=== PATIENT | male | born 1965 | race Caucasian/White ===

== ENCOUNTER 2020-02-04 12:34 | Emergency (ER) | payer MEDICAID ==
[~2020-02-04] VITALS: Ht 180.3 cm; Wt 70.0 kg
[2020-02-04 14:20] LABS: URINE BILIRUBIN - DIPSTICK NEGATIVE (NEGATIVE); URINE BLOOD DIPSTICK NEGATIVE (NEGATIVE); URINE COLOR YELLOW; URINE GLUCOSE - DIPSTICK NEGATIVE (NEGATIVE); URINE KETONE NEGATIVE (NEGATIVE); URINE LEUK ESTERASE NEGATIVE (NEGATIVE); URINE NITRITE - DIPSTICK NEGATIVE (Negative); URINE PH 7.5 (4.5-8.0); URINE PROTEIN - DIPSTICK NEGATIVE (NEG-TRACE); URINE UROBILINOGEN - DIPSTICK 0.2 E.U./dL (0.2)
[2020-02-04 15:10] VITALS: BP 152/90
[2020-02-04] MEDS ORDERED: TAMSULOSIN0.4 MG PO (15:10)
== END 2020-02-04 15:20 | disposition home or self-care (01) ==
LOC: ED 12:34
DX: R39.11 Hesitancy of micturition (principal); I10 Essential (primary) hypertension; F41.9 Anxiety disorder, unspecified; F32.9 Major depressive disorder, single episode, unspecified

== ENCOUNTER 2020-02-10 09:16 | Emergency (ER) | payer MEDICAID ==
[~2020-02-10] VITALS: Ht 180.3 cm; Wt 75.0 kg
[~2020-02-10 09:16] MED LIST: TAMSULOSIN0.4 MG PO
[2020-02-10] MEDS ORDERED: AMLODIPINE BESY10 MG PO (10:14)
[2020-02-10] MEDS ORDERED: MECLIZINE25 MG PO (10:14)
[2020-02-10] MEDS ORDERED: GABAPENTIN100 MG PO (10:14)
[2020-02-10] MEDS ORDERED: DULOXETINE HYDR60 MG PO (10:15)
[2020-02-10] MEDS ORDERED: HYDROXYZ PAM50 MG PO (10:16)
[2020-02-10] MEDS ORDERED: TRAZODONE50 MG PO (10:16)
[2020-02-10] MEDS ORDERED: NALTREXONE50 MG PO (10:17)
[2020-02-10] MEDS ORDERED: FOLIC ACID1 M1 PO (10:18)
[2020-02-10] MEDS ORDERED: BUSPIRONE30 MG PO (10:18)
[2020-02-10 10:38] LABS: HEMATOCRIT 43.3 % (39.0-50.0); HEMOGLOBIN 14.5 g/dl (14.0-18.0); IMMATURE GRANULOCYTES 0.3 % (0.0-5.0); MEAN CELL VOLUME 90.2 fL CALC (80.0-100.0); MEAN CORPUSCULAR HGB 30.2 pG CALC (26.0-32.0); MEAN CORPUSCULAR HGB CONC 33.5 g/dL CAL (32.0-36.0); NEUT# 4.86 thou/uL (1.82-7.42); RED BLOOD COUNT 4.8 mill/uL (4.70-6.10); RED CELL DISTRI WIDTH 13.5 % (11.5-15.5)
[2020-02-10 10:49] LABS: ALBUMIN 4.6 g/dL (3.2-5.0); ALKALINE PHOSPHATASE 109 u/l (38-126); ANION GAP 15 (6-22 (CALC)); BILIRUBIN, TOTAL 0.7 mg/dL (0.0-1.4); BUN 17 mg/dL (9-20); BUN/CREATININE RATIO 22 (12-20 (CALC)); CARBON DIOXIDE 25 mmol/l (22-30); CHLORIDE 105 mmol/l (95-108); CREATININE 0.7 mg/dL (0.7-1.3); GFR > 60 ML/MIN (>=60 (CALC)); GFR FOR AFR.AMER. > 60 ML/MIN (>=60 (CALC)); LIPASE 94 u/l (23-300); POTASSIUM 3.5 mmol/l (3.5-5.1); SGOT/AST 40 u/l (17-59); SODIUM 142 mmol/l (137-146)
[2020-02-10 10:55] LABS: URINE BILIRUBIN - DIPSTICK NEGATIVE (NEGATIVE); URINE BLOOD DIPSTICK NEGATIVE (NEGATIVE); URINE COLOR YELLOW; URINE GLUCOSE - DIPSTICK NEGATIVE (NEGATIVE); URINE KETONE NEGATIVE (NEGATIVE); URINE LEUK ESTERASE NEGATIVE (NEGATIVE); URINE NITRITE - DIPSTICK NEGATIVE (Negative); URINE PH 6.5 (4.5-8.0); URINE PROTEIN - DIPSTICK NEGATIVE (NEG-TRACE); URINE SPECIFIC GRAVITY 1.025; URINE UROBILINOGEN - DIPSTICK 0.2 E.U./dL (0.2)
[2020-02-10 12:15] VITALS: BP 137/76
[2020-02-10] MEDS ORDERED: LASIX20 MG PO (12:38)
== END 2020-02-10 12:57 | disposition home or self-care (01) ==
LOC: ED 09:16
PROVIDERS: Family Medicine
DX: R60.0 Localized edema (principal); I10 Essential (primary) hypertension; F32.9 Major depressive disorder, single episode, unspecified; F41.9 Anxiety disorder, unspecified; F10.10 Alcohol abuse, uncomplicated; F17.200 Nicotine dependence, unspecified, uncomplicated
CPT/HCPCS: Q9967

== ENCOUNTER 2021-03-09 15:46 | Observation (INO) | payer MEDICAID ==
[~2021-03-09] VITALS: Ht 180.3 cm; Wt 79.1 kg
[~2021-03-09 15:46] MED LIST changes: +AMLODIPINE BESY10 MG PO; +BUSPIRONE30 MG PO; +DULOXETINE HYDR60 MG PO; +FLONASE AL50 MCG/ACT; +FOLIC ACID1 M1 PO; +GABAPENTIN100 MG PO; +HYDROXYZ PAM50 MG PO; +LASIX20 MG PO; +MECLIZINE25 MG PO; +NALTREXONE50 MG PO; +TRAZODONE50 MG PO; +ZITHROMAX250 MG PO
[2021-03-09 16:35] LABS: HEMATOCRIT 46.2 % (39.0-50.0); IMMATURE GRANULOCYTES 0.1 % (0.0-5.0); MEAN CELL VOLUME 89.9 fL CALC (80.0-100.0); MEAN CORPUSCULAR HGB 31.1 pG CALC (26.0-32.0); MEAN CORPUSCULAR HGB CONC 34.6 g/dL CAL (32.0-36.0); NEUT# 5.46 thou/uL (1.82-7.42); RED BLOOD COUNT 5.14 mill/uL (4.70-6.10); RED CELL DISTRI WIDTH 11.7 % (11.5-15.5)
[2021-03-09 16:55] LABS: ALBUMIN 4.6 g/dL (3.2-5.0); ALKALINE PHOSPHATASE 128 u/l (38-126); ANION GAP 16 (6-22 (CALC)); BILIRUBIN, TOTAL 0.8 mg/dL (0.0-1.4); BUN 18 mg/dL (9-20); BUN/CREATININE RATIO 19 (12-20 (CALC)); CARBON DIOXIDE 25 mmol/l (22-30); CHLORIDE 104 mmol/l (95-108); CREATININE 0.9 mg/dL (0.7-1.3); ETHYL ALCOHOL 105 mg/dl (0-30); GFR > 60 ML/MIN (>=60 (CALC)); GFR FOR AFR.AMER. > 60 ML/MIN (>=60 (CALC)); LIPASE 88 u/l (23-300); POTASSIUM 3.8 mmol/l (3.5-5.1); SGOT/AST 30 u/l (17-59); SODIUM 141 mmol/l (137-146); TOTAL PROTEIN 8.2 g/dL (6.3-8.2)
[2021-03-09] MEDS ORDERED: TRAZODONE50 MG PO (18:42)
[2021-03-09] MEDS ORDERED: QUETIAPINE FUMA50 MG PO (18:43)
[2021-03-09] MEDS ORDERED: FOLIC ACID1 MG PO (18:43)
[2021-03-09] MEDS ORDERED: CYMBALTA60 MG PO (18:43)
[2021-03-09] MEDS ORDERED: GABAPENTIN100 MG PO (18:44)
[2021-03-09] MEDS ORDERED: NORVASC5 M1 PO (18:45)
[2021-03-09] MEDS ORDERED: B-1100 MG PO (18:46)
[2021-03-09] MEDS ORDERED: THERA M PLUS PO (18:47)
[2021-03-09] MEDS ORDERED: NALTREXONE HCL50 MG PO (18:47)
[2021-03-09 20:31] LABS: URINE BILIRUBIN - DIPSTICK NEGATIVE (NEGATIVE); URINE BLOOD DIPSTICK NEGATIVE (NEGATIVE); URINE COLOR YELLOW; URINE GLUCOSE - DIPSTICK NEGATIVE (NEGATIVE); URINE KETONE NEGATIVE (NEGATIVE); URINE LEUK ESTERASE NEGATIVE (NEGATIVE); URINE PH 5.5 (4.5-8.0); URINE PROTEIN - DIPSTICK NEGATIVE (NEG-TRACE); URINE SPECIFIC GRAVITY <=1.005; URINE UROBILINOGEN - DIPSTICK 0.2 E.U./dL (0.2)
[2021-03-09 20:35] LABS: URINE NITRITE - DIPSTICK NEGATIVE (Negative)
[2021-03-09 21:15] VITALS: BP 129/84
[2021-03-10] VITALS: BP 100/77
[2021-03-10 04:00] VITALS: BP 120/87
[2021-03-10 04:57] LABS: HEMATOCRIT 42.9 % (39.0-50.0); HEMOGLOBIN 14.8 g/dl (14.0-18.0); IMMATURE GRANULOCYTES 0.2 % (0.0-5.0); MEAN CELL VOLUME 90.3 fL CALC (80.0-100.0); MEAN CORPUSCULAR HGB 31.2 pG CALC (26.0-32.0); MEAN CORPUSCULAR HGB CONC 34.5 g/dL CAL (32.0-36.0); NEUT# 2.52 thou/uL (1.82-7.42); RED BLOOD COUNT 4.75 mill/uL (4.70-6.10); RED CELL DISTRI WIDTH 11.6 % (11.5-15.5)
[2021-03-10 05:18] LABS: ALBUMIN 3.6 g/dL (3.2-5.0); ALKALINE PHOSPHATASE 106 u/l (38-126); ANION GAP 9 (6-22 (CALC)); BUN 15 mg/dL (9-20); BUN/CREATININE RATIO 19 (12-20 (CALC)); CARBON DIOXIDE 29 mmol/l (22-30); CHLORIDE 106 mmol/l (95-108); CREATININE 0.8 mg/dL (0.7-1.3); GFR > 60 ML/MIN (>=60 (CALC)); GFR FOR AFR.AMER. > 60 ML/MIN (>=60 (CALC)); POTASSIUM 4.7 mmol/l (3.5-5.1); SGOT/AST 25 u/l (17-59); SODIUM 139 mmol/l (137-146); TOTAL PROTEIN 6.5 g/dL (6.3-8.2)
[2021-03-10 08:57] VITALS: BP 124/84
[2021-03-10 10:43] VITALS: BP 132/80
== END 2021-03-10 12:59 | disposition home or self-care (01) ==
LOC: ED 15:46 → ED-I 18:38 → ED 18:58 → MS2 18:59
PROVIDERS: Family Medicine; ADMIT Internal Medicine; ATTEND Internal Medicine
DX: F10.239 Alcohol dependence with withdrawal, unspecified (principal); U07.1 COVID-19; R10.31 Right lower quadrant pain; I10 Essential (primary) hypertension; F32.A Depression, unspecified; F41.9 Anxiety disorder, unspecified; Y90.5 Blood alcohol level of 100-119 mg/100 ml; Z23 Encounter for immunization
CPT/HCPCS: G0378; J2060; Q9967

== ENCOUNTER 2021-03-21 06:40 | Observation (INO) | payer MEDICAID ==
[~2021-03-21] VITALS: Ht 180.3 cm; Wt 80.0 kg
[~2021-03-21 06:40] MED LIST changes: +B-1100 MG PO; +CYMBALTA60 MG PO; +FOLIC ACID1 MG PO; +NALTREXONE HCL50 MG PO; +NORVASC5 M1 PO; +QUETIAPINE FUMA50 MG PO; +THERA M PLUS PO
[2021-03-21 07:39] LABS: HEMATOCRIT 43.9 % (39.0-50.0); HEMOGLOBIN 15.1 g/dl (14.0-18.0); IMMATURE GRANULOCYTES 0.3 % (0.0-5.0); MEAN CELL VOLUME 90.5 fL CALC (80.0-100.0); MEAN CORPUSCULAR HGB 31.1 pG CALC (26.0-32.0); MEAN CORPUSCULAR HGB CONC 34.4 g/dL CAL (32.0-36.0); NEUT# 4.9 thou/uL (1.82-7.42); RED BLOOD COUNT 4.85 mill/uL (4.70-6.10); RED CELL DISTRI WIDTH 12.2 % (11.5-15.5)
[2021-03-21 07:48] LABS: URINE BILIRUBIN - DIPSTICK NEGATIVE (NEGATIVE); URINE BLOOD DIPSTICK NEGATIVE (NEGATIVE); URINE COLOR YELLOW; URINE GLUCOSE - DIPSTICK NEGATIVE (NEGATIVE); URINE KETONE NEGATIVE (NEGATIVE); URINE LEUK ESTERASE NEGATIVE (NEGATIVE); URINE PROTEIN - DIPSTICK NEGATIVE (NEG-TRACE); URINE SPECIFIC GRAVITY 1.025; URINE UROBILINOGEN - DIPSTICK 0.2 E.U./dL (0.2)
[2021-03-21 07:50] LABS: URINE NITRITE - DIPSTICK NEGATIVE (Negative)
[2021-03-21 08:00] LABS: ALBUMIN 3.9 g/dL (3.2-5.0); ALKALINE PHOSPHATASE 95 u/l (38-126); AMYLASE 64 u/l (30-110); ANION GAP 8 (6-22 (CALC)); BILIRUBIN, TOTAL 0.8 mg/dL (0.0-1.4); BUN 13 mg/dL (9-20); BUN/CREATININE RATIO 17 (12-20 (CALC)); CARBON DIOXIDE 29 mmol/l (22-30); CHLORIDE 104 mmol/l (95-108); CREATININE 0.8 mg/dL (0.7-1.3); GFR > 60 ML/MIN (>=60 (CALC)); GFR FOR AFR.AMER. > 60 ML/MIN (>=60 (CALC)); LIPASE 148 u/l (23-300); POTASSIUM 4.2 mmol/l (3.5-5.1); SGOT/AST 25 u/l (17-59); SODIUM 136 mmol/l (137-146); TOTAL PROTEIN 7.1 g/dL (6.3-8.2)
[2021-03-21 08:04] LABS: MYOGLOBIN 31 ng/mL (0 - 121)
[2021-03-21 08:12] LABS: ETHYL ALCOHOL 0 mg/dl (0-30)
[2021-03-21 10:57] VITALS: BP 156/92
[2021-03-21 15:52] VITALS: BP 153/92
[2021-03-21 19:00] VITALS: BP 134/82
[2021-03-22] VITALS: BP 125/78
[2021-03-22 04:00] VITALS: BP 134/78
[2021-03-22 05:13] LABS: HEMATOCRIT 40.6 % (39.0-50.0); HEMOGLOBIN 14.1 g/dl (14.0-18.0); MEAN CORPUSCULAR HGB 31.3 pG CALC (26.0-32.0); MEAN CORPUSCULAR HGB CONC 34.7 g/dL CAL (32.0-36.0); RED BLOOD COUNT 4.51 mill/uL (4.70-6.10); RED CELL DISTRI WIDTH 12.2 % (11.5-15.5)
[2021-03-22 05:22] LABS: ANION GAP 9 (6-22 (CALC)); BUN 9 mg/dL (9-20); BUN/CREATININE RATIO 10 (12-20 (CALC)); CARBON DIOXIDE 29 mmol/l (22-30); CHLORIDE 103 mmol/l (95-108); CREATININE 0.8 mg/dL (0.7-1.3); GFR > 60 ML/MIN (>=60 (CALC)); GFR FOR AFR.AMER. > 60 ML/MIN (>=60 (CALC)); POTASSIUM 4.1 mmol/l (3.5-5.1); SODIUM 136 mmol/l (137-146)
[2021-03-22 07:00] VITALS: BP 138/72
[2021-03-22] MEDS ORDERED: ZOFRAN4 MG/TAB PO (10:13)
[2021-03-22] MEDS ORDERED: PROTONIX40 M2 PO (10:13)
[2021-03-22 10:50] VITALS: BP 136/82
== END 2021-03-22 11:00 | disposition home or self-care (01) ==
LOC: ED 06:40 → ED-I 09:00 → ED 09:20 → MS2 09:21
PROVIDERS: Hospitalist; ADMIT Internal Medicine; ATTEND Internal Medicine
DX: K29.21 Alcoholic gastritis with bleeding (principal); F10.20 Alcohol dependence, uncomplicated; K52.9 Noninfective gastroenteritis and colitis, unspecified; I10 Essential (primary) hypertension; F32.A Depression, unspecified; F41.9 Anxiety disorder, unspecified; N40.0 Benign prostatic hyperplasia without lower urinary tract symptoms; F17.200 Nicotine dependence, unspecified, uncomplicated; Z80.0 Family history of malignant neoplasm of digestive organs; Z86.16 Personal history of COVID-19; Z20.822 Contact with and (suspected) exposure to COVID-19
CPT/HCPCS: G0378; Q9967; S0164

== ENCOUNTER 2021-07-15 15:30 | Emergency (ER) | payer MEDICAID ==
[~2021-07-15] VITALS: Ht 180.3 cm; Wt 68.0 kg
[~2021-07-15 15:30] MED LIST changes: +PROTONIX40 M2 PO; +ZOFRAN4 MG/TAB PO
[2021-07-15 16:17] LABS: IMMATURE GRANULOCYTES 0.2 % (0.0-5.0); MEAN CELL VOLUME 91.8 fL CALC (80.0-100.0); MEAN CORPUSCULAR HGB 31.3 pG CALC (26.0-32.0); MEAN CORPUSCULAR HGB CONC 34.1 g/dL CAL (32.0-36.0); NEUT# 5.25 thou/uL (1.82-7.42); RED BLOOD COUNT 5.14 mill/uL (4.70-6.10); RED CELL DISTRI WIDTH 13.1 % (11.5-15.5)
[2021-07-15 16:18] LABS: HEMATOCRIT 47.2 % (39.0-50.0); HEMOGLOBIN 16.1 g/dl (14.0-18.0)
[2021-07-15 16:28] LABS: ALBUMIN 4.3 g/dL (3.2-5.0); ALKALINE PHOSPHATASE 105 u/l (38-126); BILIRUBIN, TOTAL 0.6 mg/dL (0.0-1.4); BUN 7 mg/dL (9-20); BUN/CREATININE RATIO 7 (12-20 (CALC)); CHLORIDE 109 mmol/l (95-108); CPK 150 u/l (52-200); CREATININE 0.9 mg/dL (0.7-1.3); ETHYL ALCOHOL 297 mg/dl (0-30); GFR > 60 ML/MIN (>=60 (CALC)); GFR FOR AFR.AMER. > 60 ML/MIN (>=60 (CALC)); LIPASE 135 u/l (23-300); MAGNESIUM 2.3 mg/dL (1.6-2.3); POTASSIUM 3.9 mmol/l (3.5-5.1); SGOT/AST 42 u/l (17-59); TOTAL PROTEIN 7.9 g/dL (6.3-8.2)
[2021-07-15 16:29] LABS: ANION GAP 17 (6-22 (CALC)); CARBON DIOXIDE 22 mmol/l (22-30); SODIUM 144 mmol/l (137-146)
[2021-07-16 00:20] VITALS: BP 143/92
== END 2021-07-16 00:30 ==
LOC: ED 15:30
PROVIDERS: Internal Medicine
DX: R45.851 Suicidal ideations (principal); F10.129 Alcohol abuse with intoxication, unspecified; I10 Essential (primary) hypertension; F41.9 Anxiety disorder, unspecified; F32.A Depression, unspecified; F17.200 Nicotine dependence, unspecified, uncomplicated
CPT/HCPCS: J2060